=== PATIENT | female | born 1960 | race Caucasian/White ===

== ENCOUNTER 2017-03-22 14:36 | Emergency (ER) | payer MEDICARE, MEDICAID ==
[2017-03-22 15:26] VITALS: BP 188/87
--- NOTE | 2017-03-22 17:02 | RAD ---
INDICATION: Right knee pain and swelling COMPARISON: None TECHNIQUE: AP, lateral, tunnel, and sunrise views were obtained. FINDINGS: There is mild medial joint space narrowing. There is minor spurring tibial spines. There is no significant joint effusion. IMPRESSION: MINOR OSTEOARTHRITIC CHANGE.
--- NOTE | 2017-03-26 14:41 | UC ---
Prasanna Maxwell Anna, scribed for Theodore Vang MD on 03/22/17 at 1621 . Lower Extremity/Ankle HPI - HPI Summary HPI Summary: Patient is a 57 y/o female coming to [facility] [place] presenting with the gradual onset of right knee pain that began one week ago. Per triage notes, she describes the severity of the symptoms as 8/10. The pain has been worsening. She had taken a Tramadol and Tylenol for back pain so did not notice the pain initially. The knee has been clunking with use. She feels as if the area has been swollen. When she bends her knee, it feels tight. The pain is exacerbated by movement. She does not feel like her knee will give out on her. She hurt her knee last year while playing baseball as well. She has no history of knee surgeries. Her stomach is upset by ibuprofen. She prefers crutches to a cane. Patient medications were reviewed this visit. - History of Current Complaint Chief Complaint: UCLowerExtremity Stated Complaint: KNEE INJURY Time Seen by Provider: 03/22/17 16:15 Hx Obtained From: Patient ?: No Onset/Duration: Gradual Onset, Lasting Weeks, Still Present Severity Initially: Moderate Severity Currently: Moderate Pain Intensity: 8 Pain Scale Used: 0-10 Numeric - Allergies/Home Medications Allergies/Adverse Reactions: Allergies Allergy/AdvReac Type Severity Reaction Status Date / Time Erythromycin Allergy Severe STOMACH Verified 09/28/14 16:53 PAINS Penicillins Allergy Severe YEAST Verified 09/28/14 16:53 INFECTION ANTIBIOTIC - ? NAME Allergy Severe "MAKES MY Uncoded 08/25/13 23:14 MOUTH BREAK OUT" PMH/Surg Hx/FS Hx/Imm Hx Endocrine History: Thyroid Disease Cardiovascular History: Hypertension Other Cardiovascular History: HTN Cancer History: Other - thyroid CA Other Cancer History: Thyroid CA - Surgical History Surgical History: Yes Surgery Procedure, Year, and Place: PARTIAL THYROIDECTOMY. deviated septum repair 2009 - Family History Known Family History: Positive: Hypertension - Social History Alcohol Use: None Substance Use Type: None Smoking Status (MU): Former Smoker Review of Systems Constitutional: Negative Skin: Negative Eyes: Negative ENT: Negative Respiratory: Negative Cardiovascular: Negative Gastrointestinal: Negative Genitourinary: Negative Motor: Negative Neurovascular: Negative Musculoskeletal: Arthralgia - right knee pain Neurological: Negative Psychological: Negative All Other Systems Reviewed And Are Negative: Yes Physical Exam Triage Information Reviewed: Yes Appearance: Well-Appearing, No Pain Distress Vital Signs: Initial Vital Signs Temp 98 F 03/22/17 15:22 Pulse 64 03/22/17 15:22 Resp 18 03/22/17 15:22 BP 188/87 03/22/17 15:22 Pulse Ox 98 03/22/17 15:22 Elevated BP noted. Vital Signs Reviewed: Yes Eye Exam: Other - EOMI REINA ENT Exam: Normal Neck: Positive: Supple, Nontender Respiratory: Positive: Normal breath sounds, No respiratory distress Cardiovascular: Positive: RRR Musculoskeletal: Positive: Strength Intact, ROM Intact, Edema @ - Some edema at medial lateral aspect of right knee, Other: - Tender at medial lateral aspect of right knee. No erythema. Negative anterior/posterior draw. Negative Nanette' s sign. Neurological Exam: Normal, Other - sensory/motor intact, A&O x3 Psychological Exam: Normal, Other - affect/mood appropriate Skin Exam: Other - warm, dry, color reflects adequate perfusion Diagnostics - Radiology Knee XR Xray Interpretation: Positive (See Comments) Radiology Interpretation Completed By: Radiologist - IMPRESSION: MINOR OSTEOARTHRITIC CHANGE. Lower Extremity Course/Dx - Course Course Of Treatment: KENJI, ICE, REST, CRUTCHES. PT UNABLE TO TAKE NSAIDS. NO LAXITY OR LOCKING. F/U WITH PMD OR SPORTS MED TO DETERMINE IF THERE IS AN INTERNAL DERANGEMENT. DISCHARGE HOME STABLE. - Differential Dx/Diagnosis Provider Diagnoses: Blood pressure in poor control. rt knee pain with swelling Discharge - Discharge Plan Condition: Stable Disposition: HOME Prescriptions: traMADol TAB* [Ultram*] 50 mg PO Q6HR PRN #20 tab MDD 4 PRN Reason: Pain Patient Education Materials: Swollen Knee Joint (ED), Knee Pain (ED), Hypertension (ED) Referrals: [facility] [Outside] Becky Sotelo MD [Primary Care Provider] - Additional Instructions: FOLLOW UP WITH YOUR DOCTOR AND/OR SPORTS MEDICINE/ORTHOPEDICS. ICE, REST AND ELEVATE THE KNEE. GET REEVALUATED FOR ANY WORSENING OF YOUR CONDITION OR QUESTIONS OR CONCERNS. The documentation as recorded by the Prasanna petit Anna accurately reflects the service I personally performed and the decisions made by me, Theodore Vang MD.
== END 2017-03-22 17:20 | disposition home or self-care (01) ==
LOC: UCEAST 14:36
DX: M25.561 Pain in right knee (principal); M25.461 Effusion, right knee; M17.11 Unilateral primary osteoarthritis, right knee; I10 Essential (primary) hypertension; Z85.850 Personal history of malignant neoplasm of thyroid; Z88.1 Allergy status to other antibiotic agents; Z88.0 Allergy status to penicillin; Z87.891 Personal history of nicotine dependence
CPT/HCPCS: 99213; G0463

== ENCOUNTER 2017-07-27 08:32 | Day surgery (SDC) | payer MEDICARE, MEDICAID ==
[~2017-07-27 08:32] MED LIST: Buffered Lidocaine 0.9% SYRIN* 5 ML/SYR SYRINGE INTRADERM ONE; Dexamethasone IV* 4 MG/ML 1 ML (4 MG) IV SLOW PU ONE; Ondansetron INJ* 2 MG/ML VIAL IV ONE
[2017-07-27] MEDS ORDERED: ceFAZolin 2 GM PREMIX (*) 50 ML IVPB ONE (08:34)
[2017-07-27] MEDS ORDERED: Dexamethasone IV* 4 MG/ML 1 ML (4 MG) ONE (08:34)
[2017-07-27] MEDS ORDERED: ceFAZolin 1 GM ADVAN(*) 1 GM ADDV.VIAL IVPB ONE (08:34)
[2017-07-27] MEDS ORDERED: Buffered Lidocaine 0.9% SYRIN* 5 ML/SYR SYRINGE ONE (08:34)
[2017-07-27] MEDS ORDERED: Ondansetron INJ* 2 MG/ML VIAL ONE (08:34)
[2017-07-27] MEDS ORDERED: fentaNYL* 50 MCG/ML 2 ML VIAL (100 MCG VIAL) ONE (09:23)
[2017-07-27] MEDS ORDERED: Midazolam* 1 MG/ML 2 ML VIAL (2 MG) ONE ×2 (09:23→10:47)
[2017-07-27] MEDS ORDERED: Lidocaine 1% MPF wEPI 200,000* 30 ML SDV ONE (10:23)
[2017-07-27] MEDS ORDERED: Bupivacaine 0.5% SDV PF* 30 ML VIAL ONE ×2 (10:23→11:50)
[2017-07-27] MEDS ORDERED: Bupivacaine 0.25% SDV* 30 ML ONE (10:39)
[2017-07-27] MEDS ORDERED: oxyCODONE TAB* 5 MG TAB PO PRN (11:18)
[2017-07-27] MEDS ORDERED: Acetaminophen TAB* 325 MG PO PRN (11:18)
[2017-07-27] MEDS ORDERED: PROCHLORPERAZINE INJ 5 MG/ML 2 ML VIAL IV PRN (11:18)
[2017-07-27] MEDS ORDERED: Nalbuphine* 20 MG/ML 1 ML VIAL IV PRN (11:18)
[2017-07-27] MEDS ORDERED: fentaNYL* 50 MCG/ML 2 ML VIAL (100 MCG VIAL) IV PRN (11:18)
[2017-07-27] MEDS ORDERED: Ibuprofen TAB* 400 MG PO PRN (11:18)
[2017-07-27] MEDS ORDERED: Scopolamine 1.5 mg* PATCH TRANSDERM PRN (11:18)
[2017-07-27] MEDS ORDERED: HYDROmorphone INJ* 1 MG/ML CARPUJECT SYRINGE IV PRN (11:18)
[2017-07-27] MEDS ORDERED: Propofol* 500 MG/50 ML BTL ONE (11:37)
[2017-07-27] MEDS ORDERED: oxyCODONE/Acetamin 5/325 MG* TAB ONE (12:46)
[2017-07-27 13:35] VITALS: BP 117/65
--- NOTE | 2017-07-28 07:17 | OP ---
CC: Primary Care Physician, Dr. Sotelo * DATE OF OPERATION: 07/27/[address] - [facility] DATE OF : 56 SURGEON: La Nena Parks MD. VISUAL MERCHANDISING ASSOCIATE: THOMAS Prather. An medical support assistant was needed for the entirety of the case to help with positioning, retraction, and was utilized throughout all portions of the case. ANESTHESIOLOGIST: Dr. Jimenez. ANESTHESIA: Spinal with local MAC. PRE-OP DIAGNOSIS: Right knee OCD lesion with medial meniscus tear. POST-OP DIAGNOSIS: Right knee mild arthritis of the patellofemoral joint, medial and lateral meniscal tears stable, also mild osteoarthritis of the medial compartment. OPERATIVE PROCEDURES: 1. Right knee arthroscopy with chondroplasty of the patella, the lateral femoral condyle and the medial tibial plateau. 2. Partial meniscectomy medially. 3. Partial lateral meniscectomy. COMPLICATIONS: None. ESTIMATED BLOOD LOSS: Minimal. INDICATIONS: Lynne Braga is a 57-year-old female who sustained injury to her knee while playing softball. She had an injection previously for mild arthritis, but she had catching and locking as well as a persistent pain. She had an MRI recently done that demonstrated a medial subchondral OCD lesion with some bony edema. She also had a medial meniscus tear. It was discussed with the patient that due to her body habitus and the fact that she does have some mild arthritis in other aspects of the knee, that she would not be a candidate for complex cartilage procedure. However, because she does not have full thickness lesions and there is only one concern at the medial femoral condyle, she may be a candidate for a BioCartilage or microfracture. After extensive discussion of the risks and benefits of surgery as well as the extensive recovery time, she has elected to proceed with surgery. Risks include, but are not limited to, bleeding, infection, damage to nerves, vessels, surrounding structures, wound nonhealing, persistent pain, need for further surgery, scarring, stiffness, incomplete relief of symptoms, risks of DVT, risks of anesthesia. DESCRIPTION OF PROCEDURE: The patient was greeted in the preoperative area by the attending surgeon. Correct extremity was marked and consent was confirmed. The patient was brought back to the operating suite where she was placed in the supine position on the operating room table. She then underwent spinal anesthesia, which she tolerated without difficulty, after which a non-sterile tourniquet was placed high on the proximal thigh. The lateral post was positioned. The right leg was prepped and draped in usual sterile fashion beginning with chlorhexidine soap scrub and alcohol wipe and a final prep with ChloraPrep. After appropriate surgical pause indicating site, side, procedure, and administration of antibiotics, the knee was intraarticularly injected with 1% lidocaine with epi 30 cc. Lateral portal was then made with an 11 blade. The scope was introduced into the joint. Joint was examined. There were multiple numerous loose bodies that were present in the joint, but these were all small. The patella had areas of grade 2 changes, trochlear had grade 0 to 1 changes with small fissuring in the middle. The medial and lateral gutters were intact with no loose body, but they are very erythematous. The scope was brought into the notch. The ACL and PCL were intact. There was abundant synovitis present anteriorly. The anterior medial port was made with the #18-gauge needle for localization. The shaver was used to remove the synovitis. Electrocautery device was used to maintain hemostasis. Medial compartment was examined. There was a medial femoral condyle defect; however, it had already healed over with type 2 fibrocartilage and it was not a full thickness strap. There were no unstable edges to that. The medial tibial plateau also had a small area of mild grade 2 changes. There was no unstable fraying. However, the medial meniscus was torn in a degenerative fashion, there were unstable flaps. The shaver and biters were used to debride this back to stable layer and this extended all the way posteriorly to the root. Once all flaps were removed, attention was directed to the lateral compartment. The lateral femoral condyle had a mild area of grade 2 changes, which were debrided back using the shaver. Lateral meniscus had unstable fraying and mild tearing, which was debrided back using biters and kenton. Small area of chondrosis was present in the posterior aspect of the lateral femoral condyle and had grade 3 and 4 changes. This was just under the meniscus. The knee was positioned in extension and the chondroplasty was done at the patellofemoral joint. All loose debris and fluid was removed from the intraarticular joint. The knee was thoroughly lavaged, the portals were cleaned with sterile saline, and the portals were closed with 3-0 nylon in interrupted fashion. The knee was intra-articularly injected with 0.25% Marcaine plain. Sterile dressings were applied. She was awoken from anesthesia and transferred to the PACU in stable condition. POSTOPERATIVE PLAN: She will be weightbearing as tolerated with crutches in place. She will be on range of motion as tolerated. I will see her back in 10 to 14 days. She will be discharged on pain medication as well as aspirin. DVT prophylaxis was considered, but deferred and she will be placed on aspirin due to no previous personal or family history. [id number]/[facility] #: [id number] [facility] CENTERBrooke
[2017-07-30] MEDS ORDERED: Scopolomine PATCH Remove* 1 NOTE MISC PATCH OFF ONE (11:19)
== END 2017-07-27 13:36 | disposition home or self-care (01) ==
LOC: OR 08:32
PROVIDERS: ATTEND Orthopaedic Surgery
DX: M93.261 Osteochondritis dissecans, right knee (principal); S83.231A Complex tear of medial meniscus, current injury, right knee, initial encounter; S83.271A Complex tear of lateral meniscus, current injury, right knee, initial encounter; X50.0XXA Overexertion from strenuous movement or load, initial encounter; Y93.64 Activity, baseball; Y92.320 Baseball field as the place of occurrence of the external cause; I10 Essential (primary) hypertension; I49.40 Unspecified premature depolarization; Z87.891 Personal history of nicotine dependence; E66.01 Morbid (severe) obesity due to excess calories
CPT/HCPCS: A9270-GY; J0690; J1100; J2001; J2250; J2405; J2704; J3010

== ENCOUNTER → 2018-12-19 14:47 | Emergency (ER) | payer MEDICARE, MEDICAID ==
[~2018-12-19 14:47] MED LIST changes: +Amoxicillin PO (*) 500 MG CAP PO ONE; -Buffered Lidocaine 0.9% SYRIN* 5 ML/SYR SYRINGE INTRADERM ONE; +Cefdinir cap* 300 MG CAP PO SCH; -Dexamethasone IV* 4 MG/ML 1 ML (4 MG) IV SLOW PU ONE; +Lidocaine 2% VISCOUS* 15 ML UDC PO ONE; -Ondansetron INJ* 2 MG/ML VIAL IV ONE
--- OUTSIDE RECORDS SUMMARY | 2018-12-19 15:15 | XMS REPORT | Continuity of Care Document ---
:1960 External Reference #:[id number] Author Name Leilani Rivera Care Team Providers Name Role Phone Becky Sotelo MD Primary Care Physician Unavailable Payers Date Identification Numbers Payment Provider Subscriber Effective: 2018 Policy Number: [id number] Medicare Lynne Braga PayID: [id number] [address] [place] [address] Effective: 2002 Policy Number: [id number] Medicare Lynne Braga Expires: 2018 PayID: [id number] [address] [place] [address] Policy Number: [id number] Medicaid Lynne Braga Group Name: 1 1 [address] PayID: [id number] [place] [address] Advance Directives Description No Information Available Problems Date Description Provider Status Onset: 10/23/2013 Benign essential hypertension Sanaz Carlos M.D. Active Onset: 10/23/2013 Mixed hyperlipidemia Sanaz Carlos M.D. Active Onset: 10/23/2013 Morbid obesity Sanaz Carlos M.D. Active Onset: 10/23/2013 Apnea Sanaz Carlos M.D. Active Onset: 10/23/2013 Transient cerebral ischemia Sanaz Carlos M.D. Active Onset: 11/16/2013 Supraventricular premature beats Sanaz Carlos M.D. Active Onset: 04/10/2015 Obstructive sleep apnea syndrome Janelle Mejia MD Active Onset: 04/10/2015 Dyspnea Janelle Mejia MD Active Onset: 06/28/2017 Osteochondritis dissecans La Nena Parks MD Active Onset: 06/28/2017 Current tear of medial cartilage AND/OR La Nena Parks MD Active meniscus of knee Family History Date Family Member(s) Observation Comments General Stroke mother age 32, age 55, at age 57 General Hypertension mother General Diabetes mother, maternal grandmother Social History Type Date Description Comments Sex Unknown Lives With Alone Occupation Unemployed Work Status Not Currently Working ETOH Use Denies alcohol use Tobacco Use Start: Unknown Patient is a former quit in 1985 End: Unknown smoker Recreational Drug Use Denies Drug Use Smoking Status Reviewed: 12/13/18 Patient is a former quit in 1985 smoker Exercise Type/Frequency Exercises rarely plays softball in Allergies, Adverse Reactions, Alerts Date Description Reaction Status Severity Comments 10/23/2013 Penicillins Active 11/25/2015 Doxycycline Active stomach pain 11/25/2015 Avelox Active Sores in mouth Medications Medication Date Status Form Strength Qnty SIG Indications Ordering Provider Vitamin D / Active Capsules 1000Unit 2 Unknown 0000 tablets Am, 1 tablet PM Gabapentin / Active Capsules 300mg 90caps 1 tablet Unknown 0000 Am, 2 tablet PM Metoprolol / Active Tablets ER 100mg 180tab 1 po qd Unknown Succinate ER 0000 24HR s Omeprazole / Active Capsules 20mg 30caps 1 po qd Unknown [address] DR Sertraline HCL / Active Tablets 50mg 90tabs 1 and Unknown 0000 1/2 tablet po daily Tramadol / Active Tablets 37.5-325mg 60tabs 1-2 Unknown Hydrochloride/Silver 0000 tablets taminophen q 4-6 hours prn pain Synthroid / Active Tablets 112mcg 1 po qd Unknown 0000 Amlodipine / Active Tablets 5mg 1 by Galyanova Besylate 0000 mouth , one time Becky per day , MD Gibbs / Active Tablets 320mg Take One Unknown 0000 Tablet By Mouth Every Day Oxycodone-Acetami 07/27/ Hx Tablets 5-325mg 40tabs 1-2 tabs La Nena crowder 2016 - by mouth Charly, 09/02/ every 2016 4-6 hours as needed for pain Ranitidine HCL 03/03/ Hx Tablets 300mg 90tabs Take One R06.02 Janelle 2016 - Tablet Roberto, 12/12/ By Mouth 2018 Every Night Candesartan 05/21/ Hx Tablets 16mg 1 by Unknown Cilexetil 2015 - mouth 2018 day Zantac 04/10/ Hx Tablets 300mg 90tabs 1 tab by R06.02 Janelle 2015 - mouth Roberto, every MD 2016 day every night Cyclobenzaprine 10/23/ Hx Tablets 10mg 30tabs one po Sanaz HCL 2012 - tid prn [place], M.DKenneth 2018 Alprazolam / Hx Tablets 0.5mg 20tabs 1 po bid Unknown 0000 - prn 2018 Levothyroxine / Hx Tablets 88mcg 90tabs 1 po qd Unknown Sodium - 2012 Diovan / Hx Tablets 320mg 90tabs 1 po qd Unknown - 2014 Aspirin / Hx Tablets DR 325mg 30tabs 1 po qd Unknown - 2014 Synthroid / Hx Tablets 88mcg 90tabs 1 po qd Unknown 2013 Immunizations Description No Information Available Vital Signs Date Vital Result Comment 12/13/2018 12:53pm Height 70 inches 5'10" Weight 257.38 lb Heart Rate 72 /min BP Systolic Sitting 122 mmHg Lue large cuff BP Diastolic Sitting 86 mmHg Lue large cuff Respiratory Rate 16 /min O2 % BldC Oximetry 97 % On Ra BMI (Body Mass Index) 36.9 kg/m2 09/06/2017 1:40pm Height 70 inches 5'10" Weight 290.00 lb Heart Rate 58 /min BP Systolic 133 mmHg BP Diastolic 77 mmHg Body Temperature 95.8 F Pain Level 2 BMI (Body Mass Index) 41.6 kg/m2 08/09/2017 1:30pm Height 70 inches 5'10" Weight 290.00 lb Heart Rate 60 /min BP Systolic 130 mmHg BP Diastolic 85 mmHg Body Temperature 97.7 F Pain Level 2 BMI (Body Mass Index) 41.6 kg/m2 06/28/2017 2:10pm Height 70 inches 5'10" Weight 290.00 lb Heart Rate 64 /min BP Systolic 130 mmHg BP Diastolic 82 mmHg Respiratory Rate 18 /min Body Temperature 97.5 F Pain Level 4 BMI (Body Mass Index) 41.6 kg/m2 01/11/2017 1:38pm Height 69 inches 5'9" Weight 307.38 lb Heart Rate 66 /min BP Systolic 128 mmHg BP Diastolic 78 mmHg Respiratory Rate 14 /min O2 % BldC Oximetry 96 % BMI (Body Mass Index) 45.4 kg/m2 11/25/2015 1:41pm Heart Rate 57 /min BP Systolic Sitting 142 mmHg BP Diastolic Sitting 88 mmHg Respiratory Rate 18 /min O2 % BldC Oximetry 98 % 05/22/2015 1:02pm Height 70 inches 5'10" Weight 294.00 lb reported Heart Rate 64 /min BP Systolic 152 mmHg BP Diastolic 90 mmHg Respiratory Rate 12 /min O2 % BldC Oximetry 97 % BMI (Body Mass Index) 42.2 kg/m2 04/10/2015 1:09pm Height 70 inches 5'10" Weight 294.50 lb without shoes Heart Rate 66 /min BP Systolic Sitting 130 mmHg LA lg cuff BP Diastolic Sitting 98 mmHg LA lg cuff Respiratory Rate 16 /min Body Temperature 96.4 F O2 % BldC Oximetry 96 % BMI (Body Mass Index) 42.3 kg/m2 Neck Circumference in inches 17 11/16/2013 2:27pm Height 70 inches 5'10" Weight 294.00 lb down 3 lbs Heart Rate 56 /min BP Systolic Sitting 120 mmHg Ra large cuff BP Diastolic Sitting 84 mmHg Ra large cuff BP Systolic Standing 122 mmHg Ra BP Diastolic Standing 84 mmHg Ra Respiratory Rate 16 /min BMI (Body Mass Index) 42.2 kg/m2 10/23/2013 4:10pm Height 70 inches 5'10" Weight 297.00 lb Heart Rate 60 /min BP Systolic 146 mmHg Ra large cuff BP Diastolic 94 mmHg Ra large cuff BP Systolic Sitting 144 mmHg LA large cuff BP Diastolic Sitting 92 mmHg LA large cuff BP Systolic Standing 130 mmHg LA BP Diastolic Standing 90 mmHg LA Respiratory Rate 20 /min BMI (Body Mass Index) 42.6 kg/m2 Results Description No Information Available Procedures Date Code Description Status 07/27/2017 42365 Arthroscopy,Knee,Meniscectomy Media & Lateral Completed 07/27/2017 21693 Arthroscopy,Knee,Meniscectomy Media & Lateral Completed 11/01/2013 40983 Treadmill Interp/Report Only Completed 11/01/2013 46318 Stress Test Supervsn W/Out I/R Completed 10/23/2013 84193 EKG Tracing & Interpretation Completed 08/07/2013 62882 ECHO Transthorasic Realtime 2D W Doppler & Color Flow Hosp Completed 08/07/2013 84143 Holter Monitor Review (24 hr)dr buchanan & neo only Completed Encounters Type Date Location Provider Dx Diagnosis Office Visit 06/28/2017 Orthopedic La Nena Parks, M93.261 Osteochondritis 2:00p Services Of MD stevenson, right knee C.M.A. S83.231A Complex tear of medial mensc, current injury, r knee, init Office Visit 01/11/2017 Pulmonology And Lorri G47.33 Obstructive sleep 1:45p Sleep Services Of JYOTSNA Staley RN, apnea (adult) [facility] (pediatric) E66.01 Morbid (severe) obesity due to excess calories Z68.42 Body mass index (BMI) 45.0-49.9, adult Office Visit 11/25/2015 Pulmonology And Lorri G47.33 Obstructive sleep 2:15p Sleep [facility] Of JYOTSNA Staley RN, apnea (adult) [facility]-BC (pediatric) E66.01 Morbid (severe) obesity due to excess calories Office Visit 05/22/2015 1:30p Pulmonology And Janelle 327.23 Obstructive Sleep Sleep Services Of MD Roberto Apnea Adult & [facility] Pediatric 278.01 Obesity Morbid Office Visit 04/10/2015 1:30p Pulmonology And Janelle 327.23 Obstructive Sleep Sleep Services Of MD Roberto Apnea Adult & [facility] Pediatric 786.05 Shortness Of Breath 278.01 Obesity Morbid Office Visit 11/16/2013 2:00p [facility] Sanaz Carlos 435.9 TIA Ischemia Of Kiara Nolan Cerebral Transient Unspec 401.1 Hypertension Benign 427.61 Premature Beats Supraventricular Office Visit 10/23/2013 3:45p [facility] Sanaz Carlos 401.1 Hypertension Of Kiara Nolan Benign 272.2 Hyperlipidemia Mixed 278.01 Obesity Morbid 786.03 Apnea 435.9 TIA Ischemia Cerebral Transient Unspec Office Visit 09/30/2011 3:15p Neurosurgery Yves Ryan 846.0 Sprains & Strains Services Of Kiara Lucas M.D. Sacroiliac Region Lumbosacral (Joint)(Liga Plan of Treatment Future Appointment(s):06/12/2019 2:30 pm - Lorri Staley DNP, RN, AIR BAG BUFFER-BC at [facility]12/13/2018 - Lorri Staley DNP, RN, AIR BAG BUFFER- BCG47.33 Obstructive sleep apnea (adult) (pediatric)New Orders:[facility], Ordered: 12/13/18Comments:moderate HST 06/27/13 AHI 18/hour, tRDI 41/hour, raymond oxygen 87.9% (ANGELA sleep study (outside lab) BMI 42Download unavailableFollow up:6 monthsRecommendations:Continue PAP device, Benefitting and compliant with treatment. Cleaning Wipe off mask daily (baby wipe-no scent , or warm water) Clean mask, tubing, filter, and water chamber weekly in mild no scent dish soap and water. Hang to dry. If you have any sleepiness while driving you MUST avoid operating a vehicle or machinery. If you have difficulty with your equipment, or need to replace your mask or hoses, please contact your homecare agency. A weight change of 20 pounds or more may have an effect onyour equipment; if you are experiencing problems please call for an appointment. If you have any further questions, please call the [facility] at .B68.36 Body mass index (BMI) 36.0-36.9, adultRecommendations:Continue with weight loss measures and follow-up with Dr. Small
[2018-12-19 18:17] LABS: ABS Basophils 0 10^3/ul (0-0.2); ABS Eosinophils 0.1 10^3/ul (0-0.6); ABS Lymphocytes 2.6 10^3/ul (1.0-4.8); ABS Neutrophils 6.1 10^3/ul (1.5-7.7); ABS Nucleated RBC 0 10^3/ul; Eosinophil % 1.4 %; Hematocrit 36 % (35-47); Hemoglobin 11.8 g/dl (12.0-16.0); Lymphocyte % 26.7 %; Mean Corpuscular HGB Conc 33 g/dl (31-36); Mean Corpuscular Hemoglobin 28 pg (27-31); Mean Corpuscular Volume 86 fL (80-97); Mean Platelet Volume 6.7 fL (7.4-10.4); Nucleated Red Blood Cells % 0; Platelet Count 338 10^3/ul (150-450); Red Blood Count 4.25 10^6/ul (4.00-5.40); Red Cell Distribution Width 15 % (10.5-15); White Blood Count 9.9 10^3/ul (3.5-10.8)
[2018-12-19 18:38] LABS: Albumin/Globulin Ratio 1.3 (1-3); BUN/Creatinine Ratio 15.6 (8-20); C Reactive Protein 30.78 mg/L (<8.01); Calcium 9.5 mg/dL (8.6-10.3); EGFR African American 71.7 (>60); EGFR Non-African American 59.3 (>60); Magnesium 1.9 mg/dL (1.9-2.7); Potassium 4.4 mmol/L (3.5-5.0); Total Bilirubin 0.4 mg/dL (0.2-1.0)
--- NOTE | 2018-12-19 19:07 | ED ---
Throat Pain/Nasal Congestion - HPI Summary HPI Summary: Patient complains of cold symptoms 1 week with productive cough, sore throat, right ear pain, ELLIS. Also complains of some episodes of diffuse chest pain at rest lasting couple minutes at a time. States history of stress test years ago. 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 Denies fever, neck stiffness, SOB, N/V/D, abdominal pain, change in urine, change in BM. Medical history is HDL, DM, HTN , angina, hypothyroid. History of thyroid cancer 2008. States she was cleared of cancer 2008. Denies history of blood clots, estrogen supplements, recent surgery or trauma, immobility or long travel. - History of Current Complaint Chief Complaint: EDUpperRespComplaint Time Seen by Provider: 12/19/18 17:01 Hx Obtained From: Patient Onset/Duration: Gradual Onset, Lasting Days Severity: Moderate Associated Signs And Symptoms: Positive: Dysphagia Cough: Productive - Allergies/Home Medications Allergies/Adverse Reactions: Allergies Allergy/AdvReac Type Severity Reaction Status Date / Time doxycycline Allergy Abdominal Verified 12/19/18 14:54 Pain erythromycin base Allergy Abdominal Verified 12/19/18 14:54 Pain moxifloxacin Allergy See Comment Verified 12/19/18 14:54 Penicillins Allergy See Comment Verified 12/19/18 14:54 Home Medications: Home Medications Metoprolol Succinate XL TAB* [Toprol XL TAB*] 100 mg PO BEDTIME 12/19/18 [ History Confirmed 12/19/18] Sertraline* [Zoloft*] 75 mg PO DAILY 12/19/18 [History Confirmed 12/19/18] PMH/Surg Hx/FS Hx/Imm Hx Endocrine/Hematology History: Reports: Hx Thyroid Disease Denies: Hx Diabetes Cardiovascular History: Reports: Hx Angina - "discomfort", Hx Hypertension Denies: Hx Coronary Artery Disease, Hx Hypercholesterolemia, Hx Myocardial Infarction, Hx Pacemaker/ICD, Hx Valvular Heart Disease Respiratory History: Reports: Hx Sleep Apnea Denies: Hx Asthma, Hx Chronic Obstructive Pulmonary Disease (COPD) GI History: Reports: Hx Gastroesophageal Reflux Disease - ON MEDICATION FOR History: Reports: Hx Kidney Stones - LEFT Denies: Hx Renal Disease Musculoskeletal History: Reports: Hx Arthritis - ANKLE AND KNEES, Hx Bursitis - RIGHT KNEE, Other Musculoskeletal History - LOWER BACK - HAD RECENT XRAY Sensory History: Reports: Hx Contacts or Glasses - GLASSES Denies: Hx Hearing Aid Opthamlomology History: Reports: Hx Contacts or Glasses - GLASSES Psychiatric History: Reports: Hx Anxiety - ON MEDICATION FOR, Hx Depression - ON MEDICATION FOR Denies: Hx Panic Disorder - Cancer History Cancer Type, Location and Year: THRYOID CA 2010 Hx Chemotherapy: No Hx Radiation Therapy: No - Surgical History Surgery Procedure, Year, and Place: PARTIAL THYROIDECTOMY. deviated septum repair 2009. Lt POINTER FINGER - ARTHROSCOPIC. LR GREAT TOE - INGROWN TOE NAIL Hx Anesthesia Reactions: No Infectious Disease History: No Infectious Disease History: Denies: Hx Clostridium Difficile, Hx Hepatitis, Hx Human Immunodeficiency Virus (HIV), Hx of Known/Suspected MRSA, Hx Shingles, Hx Tuberculosis, Hx Known/ Suspected VRE, Hx Known/Suspected VRSA, History Other Infectious Disease, Traveled Outside the [place] in Last 30 Days - Social History Alcohol Use: None Substance Use Type: Reports: None Smoking Status (MU): Former Smoker Amount Used/How Often: UP TO 1.5 PPD X 11 YEARS Have You Smoked in the Last Year: No Review of Systems Constitutional: Negative Eyes: Negative Positive: Sore Throat, Ear Ache Positive: Chest Pain Positive: Cough Gastrointestinal: Negative Genitourinary: Negative Musculoskeletal: Negative Skin: Negative Positive: Headache Psychological: Normal All Other Systems Reviewed And Are Negative: Yes Physical Exam - Summary Physical Exam Summary: Physical exam unremarkable. Lung sounds clear to auscultation bilaterally. Regular rate and rhythm. Triage Information Reviewed: Yes Vital Signs On Initial Exam: Initial Vitals Temp Pulse Resp BP Pulse Ox 97.1 F 64 17 114/63 96 12/19/18 14:49 12/19/18 14:49 12/19/18 14:49 12/19/18 14:49 12/19/18 14:49 Vital Signs Reviewed: Yes Appearance: Positive: Well-Appearing Skin: Positive: Warm Head/Face: Positive: Normal Head/Face Inspection Eyes: Positive: Normal ENT: Positive: Normal ENT inspection Neck: Positive: Supple Respiratory/Lung Sounds: Positive: Clear to Auscultation Cardiovascular: Positive: Normal Abdomen Description: Positive: Nontender Musculoskeletal: Positive: Normal Neurological: Positive: Normal Psychiatric: Positive: Normal AVPU Assessment: Alert - Renate Coma Scale Best Eye Response: 4 - Spontaneous Best Motor Response: 6 - Obeys Commands Best Verbal Response: 5 - Oriented Coma Scale Total: 15 Diagnostics - Vital Signs Vital Signs Temp Pulse Resp BP Pulse Ox 12/19/18 14:49 97.1 F 64 17 114/63 96 - Laboratory Lab Results: Lab Results 12/19/18 12/19/18 Range/Units 18:09 18:09 WBC 9.9 (3.5-10.8) 10^3/ul RBC 4.25 (4.00-5.40) 10^6/ul Hgb 11.8 L (12.0-16.0) g/dl Hct 36 (35-47) % MCV 86 (80-97) fL MCH 28 (27-31) pg MCHC 33 (31-36) g/dl RDW 15 (10.5-15) % Plt Count 338 (150-450) 10^3/ul MPV 6.7 L (7.4-10.4) fL Neut % (Auto) 62.0 % Lymph % (Auto) 26.7 % [place] % (Auto) 9.7 % Eos % (Auto) 1.4 % Baso % (Auto) 0.2 % Absolute Neuts (auto) 6.1 (1.5-7.7) 10^3/ul Absolute Lymphs (auto) 2.6 (1.0-4.8) 10^3/ul Absolute Monos (auto) 1.0 H (0-0.8) 10^3/ul Absolute Eos (auto) 0.1 (0-0.6) 10^3/ul Absolute Basos (auto) 0 (0-0.2) 10^3/ul Absolute Nucleated RBC 0 10^3/ul Nucleated RBC % 0 Sodium 142 (135-145) mmol/L Potassium 4.4 (3.5-5.0) mmol/L Chloride 105 (101-111) mmol/L Carbon Dioxide 31 (22-32) mmol/L Anion Gap 6 (2-11) mmol/L BUN 15 (6-24) mg/dL Creatinine 0.96 H (0.51-0.95) mg/dL Est GFR ( Amer) 71.7 (>60) Est GFR (Non-Af Amer) 59.3 (>60) BUN/Creatinine Ratio 15.6 (8-20) Glucose 92 (70-100) mg/dL Calcium 9.5 (8.6-10.3) mg/dL Phosphorus 4.0 (2.5-5.0) mg/dL Magnesium 1.9 (1.9-2.7) mg/dL Total Bilirubin 0.40 (0.2-1.0) mg/dL AST 17 (13-39) U/L ALT 18 (7-52) U/L Alkaline Phosphatase 66 (34-104) U/L Troponin I 0.00 (<0.04) ng/mL C-Reactive Protein 30.78 H (<8.01) mg/L Total Protein 7.0 (6.4-8.9) g/dL Albumin 4.0 (3.2-5.2) g/dL Globulin 3.0 (2-4) g/dL Albumin/Globulin Ratio 1.3 (1-3) Result Diagrams: 12/19/18 18:09 12/19/18 18:09 Lab Statement: Any lab studies that have been ordered have been reviewed, and results considered in the medical decision making process. EENT Course/Dx - Course Course Of Treatment: Patient complains of cold symptoms 1 week with productive cough, sore throat, right ear pain, ELLIS. Also complains of some episodes of diffuse chest pain at rest lasting couple minutes at a time. States history of stress test years ago. 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 Denies fever, neck stiffness , SOB, N/V/D, abdominal pain, change in urine, change in BM. Medical history is HDL, DM, HTN, angina, hypothyroid. History of thyroid cancer 2008. States she was cleared of cancer 2008. Denies history of blood clots, estrogen supplements, recent surgery or trauma, immobility or long travel. Physical exam :Physical exam unremarkable. Lung sounds clear to auscultation bilaterally. Regular rate and rhythm. Vital signs within normal limits. Labs unremarkable. EKG sinus bradycardia. Chest x-ray unremarkable. Patient diagnosed with otitis media. Rx for amoxicillin. Patient states of allergy to amoxicillin is likely subsequent yeast infection. Patient okayed amoxicillin versus Cefdinir - Diagnoses Provider Diagnoses: Otitis media Discharge - Sign-Out/Discharge Documenting (check all that apply): Patient Departure Patient Received Moderate/Deep Sedation with Procedure: No - Discharge Plan Condition: Stable Disposition: HOME Prescriptions: Amoxicillin 500 mg PO BID 10 Days #20 capsule Patient Education Materials: Ear Infection (ED) Referrals: Becky Sotelo MD [Primary Care Provider] - Additional Instructions: Take antibiotics as directed. Take ibuprofen or Tylenol for pain. Follow-up with primary care. Return to the ED for any new or worsening symptoms. - Billing Disposition and Condition Condition: STABLE Disposition: Home
[2018-12-19 19:53] VITALS: BP 129/89
== END | disposition home or self-care (01) ==
LOC: ED 14:47
DX: H66.91 Otitis media, unspecified, right ear (principal); R00.1 Bradycardia, unspecified; R13.10 Dysphagia, unspecified; I20.9 Angina pectoris, unspecified; I10 Essential (primary) hypertension; K21.9 Gastro-esophageal reflux disease without esophagitis; F41.9 Anxiety disorder, unspecified; F32.9 Major depressive disorder, single episode, unspecified; Z88.1 Allergy status to other antibiotic agents; Z88.0 Allergy status to penicillin; Z87.891 Personal history of nicotine dependence
CPT/HCPCS: 36415; 71046; 80053; 83735; 83880; 84100; 84484; 85025; 86140; 87651; 93005; 99283; A9270-GY

== ENCOUNTER → 2019-02-12 11:54 | Day surgery (SDC) | payer MEDICARE, MEDICAID ==
--- NOTE | 2019-02-06 06:32 | HP ---
CC: Dr. Sotelo * ADMITTING HISTORY AND PHYSICAL: DATE OF ADMISSION: 02/12/19 ADMITTING DIAGNOSIS: Left renal calculus. PLANNED PROCEDURE: Left stent insertion and shock wave lithotripsy of left renal calculus. SURGEON: Dr. Gurrola. HISTORY OF PRESENT ILLNESS: Lynne Braga is a 58-year-old lady with a history of recurrent renal calculi. She was recently evaluated and noted to have an about 9- to 10-mm calculus in the area of the left kidney close to the renal pelvis. She is now being brought in for left stent insertion and shock wave lithotripsy. PAST MEDICAL HISTORY: Significant for: 1. Hypertension. 2. History of thyroid cancer. 3. PTSD. PAST SURGICAL HISTORY: Significant for thyroidectomy. MEDICATIONS: On admission: 1. Diovan 320 mg daily. 2. Metoprolol 100 mg daily. 3. Prilosec 20 mg daily. 4. Sertraline 50 mg daily. 5. Vitamin D3 1000 units twice a day. 6. Amlodipine 5 mg daily. ALLERGIES AND INTOLERANCES: PENICILLIN and ERYTHROMYCIN. FAMILY HISTORY: Negative for stones. SOCIAL HISTORY: She is a former smoker, who quit in 1986. REVIEW OF SYSTEMS: She is otherwise in good health. There is no history of diabetes mellitus or any other major systemic illness. PHYSICAL EXAMINATION GENERAL: Pleasant, healthy-appearing, middle-aged lady. VITAL SIGNS: Blood pressure is 142/68, pulse 67 per minute and regular, temperature 97.6, oxygen saturation 98% on room air. LUNGS: Clear bilaterally. CARDIOVASCULAR: Regular rate and rhythm, S1 and S2. ABDOMEN: Soft with mild left flank tenderness. IMPRESSION: A 58-year-old lady with a 9- to 10-mm calculus in the left kidney in the area of the left renal pelvis with a possible duplication noted on the ultrasound (will be confirmed on retrograde). PLAN: Left stent insertion and shock wave lithotripsy of left renal calculus. I have discussed the procedure in detail including possible risks of bleeding, infection, incomplete fragmentation with the patient, who understands and wishes to proceed as planned. [id number]/CPS #: [id number] MTDD
[~2019-02-12 11:54] MED LIST changes: -Amoxicillin PO (*) 500 MG CAP PO ONE; +Buffered Lidocaine 1% SYRIN* 1 ML/SYRINGE INTRADERM ONE; -Cefdinir cap* 300 MG CAP PO SCH; +Dexamethasone IV* 4 MG/ML 1 ML (4 MG) ONE; +EPHEDrine (Pressors)* 50 MG/ML VIAL ONE; +Famotidine IV* 10 MG/ML 2 ML (20 mg) IV ONE; +Famotidine IV* 10 MG/ML 2 ML (20 mg) ONE; +Furosemide IV* 10 MG/ML 2 ML VIAL (20 MG) ONE; +Iohexol 180 (CONTRAST) 10 ML SDV IV ONE; +Lactated Ringers 1000 ML Bag* 1,000 ML IV SCH; +Levofloxacin 500 MG IVPREMIX(* 500 MG/100 ML BAG IVPB ONE; +Lidocaine 2% PF * 5 ML VIAL ONE; -Lidocaine 2% VISCOUS* 15 ML UDC PO ONE; +Midazolam* 1 MG/ML 5 ML VIAL (5 MG) ONE; +Naloxone* 0.4 MG/ML 1 ML VIAL IV PRN; +Ondansetron INJ* 2 MG/ML VIAL IV PRN; +Ondansetron INJ* 2 MG/ML VIAL ONE; +Propofol* 10 MG/ML 20 ML BTL ONE; +fentaNYL* 50 MCG/ML 2 ML VIAL (100 MCG VIAL) IV PRN; +fentaNYL* 50 MCG/ML 2 ML VIAL (100 MCG VIAL) ONE; +oxyCODONE/Acetamin 5/325 MG* TAB PO PRN
[2019-02-12 16:45] VITALS: BP 104/74
--- NOTE | 2019-02-13 02:10 | OP ---
CC: Dr. Sotelo * DATE OF OPERATION: 02/12/19 - [facility] DATE OF : 56 SURGEON: Dr. Gurrola. ANESTHESIOLOGIST: Dr. Humphrey. ANESTHESIA: General. PRE-OP DIAGNOSIS: Left renal calculus. POST-OP DIAGNOSIS: OPERATIVE PROCEDURES: 1. Shockwave lithotripsy of left renal calculus. 2. Left retrograde and left stent insertion. COMPLICATIONS: None. POSTOPERATIVE CONDITION: Stable. STENT USED: 7-[place] stent, left ureter. INDICATIONS: Lynne Braga is a 58-year-old lady who was noted to have an about 9 to 10 mm calculus in the left kidney, close to the area of the left renal pelvis. I discussed the procedure of lithotripsy and left stent insertion including possible risks of bleeding, infection, incomplete fragmentation, and need for additional procedures. She is now being brought in for shockwave lithotripsy and left stent insertion. DESCRIPTION OF PROCEDURE: After induction of general anesthesia, the patient was placed on the lithotripsy table in supine position. The calculus, which was fairly large and fairly dense, was easily localized using fluoroscopy and shockwave lithotripsy was started at the rate of 60 shocks per minute. After the initial 300 shocks, there was a pause in lithotripsy for several minutes in an effort to minimize any potential trauma to the kidney. Lithotripsy was then resumed and periodic imaging revealed good localization and partial fragmentation. A total of 2600 shocks were administered. While the stone was not completely fragmented at this point, I certainly did not want to continue with any additional shocks because that would increase the potential risk of any trauma to the kidney. Next, the patient was placed in dorsal lithotomy position. Cystoscopy was performed. Retrograde pyelogram revealed a bifid left collecting system with the lower part of the collecting system being more prominent, with the calculus located in the renal pelvis in that area. A 7-[place] stent was then introduced and positioned under fluoroscopy with good proximal and distal positioning obtained. The patient tolerated the procedure satisfactorily and was transferred back to the recovery area in stable condition. My plan is to obtain a postoperative x-ray to see whether she is going to require any additional procedures for complete fragmentation of the calculus. [id number]/CPS #: [id number] MTDD
== END | disposition home or self-care (01) ==
LOC: OR 11:54
PROVIDERS: ATTEND Urology
DX: N20.0 Calculus of kidney (principal); I10 Essential (primary) hypertension; F43.10 Post-traumatic stress disorder, unspecified; Z88.0 Allergy status to penicillin; Z88.1 Allergy status to other antibiotic agents; Z87.891 Personal history of nicotine dependence; Z85.850 Personal history of malignant neoplasm of thyroid
CPT/HCPCS: 74018; C1876; J1100; J1940; J1956; J2250; J2405; J2704; J3010

== ENCOUNTER 2019-03-30 12:19 | Emergency (ER) | payer MEDICARE, MEDICAID ==
[2019-03-30 12:26] VITALS: BP 141/80
--- NOTE | 2019-03-30 12:28 | UC ---
Hand/Wrist HPI - HPI Summary HPI Summary: 59 yo female presents with RIGHT 4th digit pain. She tells me that about 2 weeks ago she was playing softball and the ball hit her finger straight on and jammed it. Continued playing, but since that time has had continued discomfort that is worse at night. Also feels a "clunking" at the PIP when trying to flex the finger. She is right handed. - History Of Current Complaint Chief Complaint: UCUpperExtremity Stated Complaint: RT HAND FINGER Time Seen by Provider: 03/30/19 12:26 Hx Obtained From: Patient Onset/Duration: Sudden Onset Severity Initially: Mild Severity Currently: Mild Pain Intensity: 1 Pain Scale Used: 0-10 Numeric - Allergies/Home Medications Allergies/Adverse Reactions: Allergies Allergy/AdvReac Type Severity Reaction Status Date / Time doxycycline Allergy Abdominal Verified 03/30/19 12:27 Pain erythromycin base Allergy Abdominal Verified 03/30/19 12:27 Pain moxifloxacin Allergy See Comment Verified 03/30/19 12:27 Penicillins Allergy See Comment Verified 03/30/19 12:27 PMH/Surg Hx/FS Hx/Imm Hx Endocrine History: Hypothyroidism Cardiovascular History: Hypertension Psychological History: Anxiety, Depression - Surgical History Surgical History: Yes Surgery Procedure, Year, and Place: PARTIAL THYROIDECTOMY. deviated septum repair 2009. Lt POINTER FINGER - ARTHROSCOPIC. LR GREAT TOE - INGROWN TOE NAIL - Family History Known Family History: Positive: Hypertension - Social History Occupation: Employed Full-time Lives: With Family Alcohol Use: None Substance Use Type: None Smoking Status (MU): Former Smoker Amount Used/How Often: UP TO 1.5 PPD X 11 YEARS Have You Smoked in the Last Year: No When Did the Patient Quit Smoking/Using Tobacco: 1984 Review of Systems All Other Systems Reviewed And Are Negative: Yes Constitutional: Positive: Negative Skin: Positive: Negative Respiratory: Positive: Negative Cardiovascular: Positive: Negative Neurovascular: Positive: Negative Musculoskeletal: Positive: Other: - Right ring finger pain Neurological: Positive: Negative Psychological: Positive: Negative Physical Exam - Summary Physical Exam Summary: GENERAL: NAD. WDWN. No pain distress. SKIN: No rashes, sores, lesions, or open wounds. CHEST: No accessory muscle use. Breathing comfortably and in no distress. CV: Pulses intact radial and ulnar. Cap refill <2seconds MSK: RIGHT 4th digit: FROM. Mild TTP at dorsal proximal phalanx and PIP. Strength 5/5 including meat seafood associate strength. No edema or obvious bony deformities. NEURO: Alert. Sensations intact hand and all fingers. PSYCH: Age appropriate behavior. Triage Information Reviewed: Yes Vital Signs: Initial Vital Signs Temp 96.8 F 03/30/19 12:21 Pulse 60 03/30/19 12:21 Resp 17 03/30/19 12:21 BP 141/80 03/30/19 12:21 Pulse Ox 100 03/30/19 12:21 Vital Signs Reviewed: Yes Hand/Wrist Course/Dx - Course Course Of Treatment: XR: IMPRESSION: OSTEOARTHRITIS. NO ACUTE OSSEOUS INJURY. IF SYMPTOMS PERSIST, RECOMMEND REPEAT IMAGING. Suspect tendon injury and this "clunking" could be due to injury at the shantell and/or tendon damage. Recommended continued rest and ice and f/u with Orthopedics for further eval. - Differential Dx/Diagnosis Provider Diagnosis: Sprain of right ring finger Discharge - Sign-Out/Discharge Documenting (check all that apply): Patient Departure All imaging exams completed and their final reports reviewed: Yes - Discharge Plan Condition: Stable Disposition: HOME Patient Education Materials: Finger Sprain (ED) Referrals: Becky Sotelo MD [Primary Care Provider] - Sonia Fiore MD [Medical Doctor] - If Needed Additional Instructions: If you develop a fever, shortness of breath, chest pain, new or worsening symptoms - please call your PCP or go to the ED immediately. Your blood pressure was high at todays visit. Please see your primary provider within 4 weeks for recheck and re-evaluation. 1) Your X-Ray today is normal, however given your continued discomfort and "clunking" of your finger, I suspect this is a tendon injury - I recommend you follow up with Orthopedics at the number below for further evaluation - Billing Disposition and Condition Condition: STABLE Disposition: Home
== END 2019-03-30 12:54 | disposition home or self-care (01) ==
LOC: UCEAST 12:19
DX: S63.614A Unspecified sprain of right ring finger, initial encounter (principal); W20.8XXA Other cause of strike by thrown, projected or falling object, initial encounter; Y93.64 Activity, baseball; Y92.320 Baseball field as the place of occurrence of the external cause; M19.041 Primary osteoarthritis, right hand; Z88.1 Allergy status to other antibiotic agents; Z88.0 Allergy status to penicillin; Z87.891 Personal history of nicotine dependence
CPT/HCPCS: 73140; 99211; G0463

== ENCOUNTER 2024-09-28 19:23 | Observation (INO) ==
[2024-09-28] MEDS: Lactated Ringers SEPSIS* BAG 1,850 ML IV ONE (20:07)
[2024-09-28] MEDS: Cefepime 2 GM in Dextrose 2 GM/50 ML BAG IV ONE (20:18)
[2024-09-28 20:22] LABS: ABS Lymphocytes 0.5 10^3/uL (1.0-4.8); ABS Monocytes 0.8 10^3/uL (0.0-0.9); ABS Neutrophils 8.4 10^3/uL (1.5-7.6); Eosinophil % 0.1 %; Hematocrit 39.2 % (35-45); Hemoglobin 13.2 g/dL (11.5-14.3); Lymphocyte % 5.2 %; Mean Corpuscular Hemoglobin 31.1 pg (27-33); Mean Corpuscular Hgb Conc 33.7 g/dL (31-36); Mean Corpuscular Volume 92.2 fL (80-97); Mean Platelet Volume 6.8 fL (7.5-11.2); Platelet Count 198 10^3/uL (150-450); Red Blood Count 4.25 10^6/uL (3.63-4.92); Red Cell Distribution Width 15.3 % (12-17); White Blood Count 9.7 10^3/uL (3.8-11.8)
[2024-09-28 20:33] LABS: Activated Partial Thrombo Time 25.2 seconds (26.0-38.0); INR 1.21 (0.85-1.14)
[2024-09-28 20:55] LABS: Albumin/Globulin Ratio 1.6 (1-3); C Reactive Protein 106.79 mg/L (<8.01); Calcium 7.5 mg/dL (8.6-10.3); Creatinine, Serum 1.15 mg/dL (0.51-0.95); Globulin 1.9 g/dL (2-4); Potassium 3.1 mmol/L (3.5-5.0); Total Bilirubin 1.1 mg/dL (0.2-1.0); Total Protein 4.9 g/dL (6.4-8.9); eGFR CKD-EPI 52.5 (>60)
[2024-09-28 22:02] LABS: Urine Appearance Turbid; Urine Bilirubin Negative (Negative); Urine Blood 1+ (Negative); Urine Color Colorless; Urine Glucose Negative (Negative); Urine Ketones Negative (Negative); Urine Nitrite 1+ (Negative); Urine Protein 1+ (>=30 mg/dL) (Negative); Urine Specific Gravity 1.009 (1.002-1.030); Urine Urobilinogen Negative (Negative); Urine pH 5.5 (5.0-8.0)
[2024-09-28 22:06] LABS: Urine Bacteria 2+ /HPF (Absent); Urine Red Blood Cell 2+(6-10/hpf) /HPF (0-Trace); Urine Squamous Epithelial Cell Present /HPF (Absent); Urine White Blood Cell 3+(>20/hpf) /HPF (0-Trace)
[2024-09-28 22:07] LABS: High Sensitivity Troponin 1 Hr 16 pg/mL (<15)
[2024-09-28] MEDS: Potassium Chlor 20 meq TAB.ER PO ONE (22:35)
[2024-09-29] MEDS: Morphine 2 MG/ML SYRINGE IV PRN (03:19)
[2024-09-29] MEDS: Levothyroxine 100 MCG/5 ML VIAL IV SCH (05:47)
[2024-09-29] MEDS: Lactated Ringers 1000 ml BAG 1,000 ML IV SCH (05:47)
[2024-09-29 06:07] LABS: ABS Lymphocytes 1.3 10^3/uL (1.0-4.8); ABS Neutrophils 9.2 10^3/uL (1.5-7.6); ABS Nucleated RBC 0.02 10^3/ul; Eosinophil % 0.1 %; Hematocrit 35.4 % (35-45); Hemoglobin 12.3 g/dL (11.5-14.3); Lymphocyte % 11.5 %; Mean Corpuscular Hemoglobin 32.2 pg (27-33); Mean Corpuscular Hgb Conc 34.6 g/dL (31-36); Nucleated Red Blood Cells % 0.1 %/100WBC (0.0-0.8); Platelet Count 197 10^3/uL (150-450); Red Blood Count 3.81 10^6/uL (3.63-4.92); White Blood Count 11.6 10^3/uL (3.8-11.8)
[2024-09-29] MEDS: cefTRIAXone 2 gm/50 mL D5W 2 GM/50 ML BAG IV SCH (06:47)
[2024-09-29 06:54] LABS: Calcium 8.7 mg/dL (8.6-10.3); Creatinine, Serum 1.02 mg/dL (0.51-0.95); Magnesium 1.7 mg/dL (1.9-2.7); Potassium 3.9 mmol/L (3.5-5.0); eGFR CKD-EPI 60.7 (>60)
[2024-09-29] MEDS ORDERED: Iohexol 180 (CONTRAST) 10 ML SDV IV ONE (08:08)
[2024-09-29] MEDS ORDERED: Lidocaine 2% JELLY 10 ML JELLY ONE (08:08)
[2024-09-29] MEDS ORDERED: fentaNYL 100 mcg/2 ml 50 MCG/ML VIAL ONE (08:08)
[2024-09-29] MEDS ORDERED: Midazolam 2 mg/2 ml VIAL 1 mg/ml 2 ml VIAL (2 mg) ONE (08:08)
[2024-09-29] MEDS ORDERED: Propofol 10 MG/ML 20 ML BTL ONE (08:09)
[2024-09-29] MEDS ORDERED: Lidocaine 2% PF 5 ML VIAL ONE (08:11)
[2024-09-29] MEDS ORDERED: Naloxone 0.4 mg VIAL 0.4 mg/ml 1 ml VIAL IV PRN (08:28)
[2024-09-29] MEDS ORDERED: Ondansetron 4 mg VIAL 2 MG/ML 2 ml VIAL IV PRN (08:28)
[2024-09-29] MEDS ORDERED: fentaNYL 100 mcg/2 ml 50 MCG/ML VIAL IV PRN (08:28)
[2024-09-29] MEDS: Magnesium Sulfate 2 gm BAG 2 GM/50 ML BAG IVPB ONE (08:42)
[2024-09-29] MEDS ORDERED: Morphine 2 MG/ML SYRINGE IV PRN (14:22)
[2024-09-30 06:17] LABS: ABS Eosinophils 0.1 10^3/uL (0.0-0.5); ABS Lymphocytes 1.8 10^3/uL (1.0-4.8); ABS Monocytes 0.8 10^3/uL (0.0-0.9); ABS Neutrophils 5.3 10^3/uL (1.5-7.6); Eosinophil % 0.8 %; Hematocrit 36.9 % (35-45); Hemoglobin 12.4 g/dL (11.5-14.3); Lymphocyte % 22.4 %; Mean Corpuscular Hgb Conc 33.5 g/dL (31-36); Mean Corpuscular Volume 92.4 fL (80-97); Mean Platelet Volume 7.2 fL (7.5-11.2); Nucleated Red Blood Cells % 0.1 %/100WBC (0.0-0.8); Platelet Count 208 10^3/uL (150-450); Red Blood Count 3.99 10^6/uL (3.63-4.92)
[2024-09-30 06:34] LABS: Calcium 9.1 mg/dL (8.6-10.3); Creatinine, Serum 0.96 mg/dL (0.51-0.95); Potassium 3.6 mmol/L (3.5-5.0); eGFR CKD-EPI 65.3 (>60)
[2024-09-30 10:09] VITALS: BP 144/81
[2024-09-30] MEDS: Potassium Chlor 20 meq TAB.ER PO ONE (12:57)
== END 2024-09-30 14:00 | disposition home or self-care (01) ==
LOC: AA 19:23 → ED 19:23 → EDHOLD 19:23 → AA 09-29 08:28
PROVIDERS: ADMIT Internal Medicine; ATTEND Hospitalist